=== PATIENT | female | born 1940 | race Caucasian/White ===

== ENCOUNTER 2016-10-07 12:29 | Inpatient (IN) | payer OTHER, BC ==
[2016-10-05 12:50] VITALS: BP 148/79
[2016-10-05 13:56] LABS: BLOOD UREA NITROGEN 27 mg/dL (7-18)
[2016-10-05 13:59] LABS: ASPARTATE AMINO TRANSFERASE 13 U/L (15-37)
[~2016-10-07] VITALS: Ht 165.1 cm; Wt 85.3 kg
[~2016-10-07 12:29] MED LIST: ASPI-621 PO; BONE-UP PO; CARV12.543 PO; FISH1CAP PO; FURO20TA3 PO; GLIP5TAB22 PO; IBUP200T64 PO; LISI-170 PO; METF10002 PO; POTA20TA89 PO; SIMV40TA3 PO
[2016-10-07] MEDS ORDERED: MIDAZOLAM 1 MG/ML, 2ML ONE (14:09)
[2016-10-07] MEDS: LACTATED RINGERS 1,000 ML IV SCH ×3 (14:09→19:38)
[2016-10-07] MEDS ORDERED: FENTANYL PF 250 MCG/5ML ONE (14:09)
[2016-10-07] MEDS ORDERED: BUPIVACAINE/PF 0.5% ONE (14:40)
[2016-10-07] MEDS ORDERED: PROPOFOL 10 MG/ML, 20ML ONE (15:03)
[2016-10-07] MEDS ORDERED: ONDANSETRON 2MG/ML, 2ML ONE (15:03)
[2016-10-07] MEDS ORDERED: NEOSTIGMINE 1 MG/ML, 10ML ONE (15:03)
[2016-10-07] MEDS ORDERED: CEFAZOLIN 1,000 MG ONE (15:03)
[2016-10-07] MEDS ORDERED: SUCCINYLCHOLINE 20 MG/ML, 10ML ONE (15:03)
[2016-10-07] MEDS ORDERED: ROCURONIUM 10 MG/ML ONE (15:03)
[2016-10-07] MEDS ORDERED: GLYCOPYRROLATE 0.2MG/1ML ONE (15:03)
[2016-10-07] MEDS ORDERED: ALBUTEROL SULFATE 2.5 MG/3 ML NPPB PRN (17:00)
[2016-10-07] MEDS ORDERED: OXYcodone 5 MG/5 ML ORAL.SOL UDC PO PRN (17:00)
[2016-10-07] MEDS ORDERED: EPHEDRINE 50 MG/ML, 1ML IVPush PRN (17:00)
[2016-10-07] MEDS ORDERED: hydrALAzine 20 MG/ML, 1ML IV PRN (17:00)
[2016-10-07] MEDS ORDERED: ONDANSETRON 2MG/ML, 2ML IVPush PRN (17:00)
[2016-10-07] MEDS ORDERED: ACETAMINOPHEN 325 MG TABLET PO PRN ×2 (17:00→21:00)
[2016-10-07] MEDS ORDERED: PROMETHAZINE 25 MG/ML, 1ML IV PRN (17:00)
[2016-10-07] MEDS ORDERED: LABETALOL 5MG/ML, 20ML IV PRN (17:00)
[2016-10-07] MEDS ORDERED: ALBUTEROL/IPRATROPIUM 2.5MG/0.5MG, 3 ML NPPB PRN (17:00)
[2016-10-07] MEDS ORDERED: METOPROLOL 1 MG/ML, 5ML IV PRN (17:00)
[2016-10-07] MEDS ORDERED: FENTANYL PF 100 MCG/2ML IV PRN (17:00)
[2016-10-07] MEDS ORDERED: HYDROmorphone 1 MG/ML, 1ML IV PRN (17:00)
[2016-10-07] MEDS ORDERED: OXYcodone 5 MG/5 ML ORAL.SOL UDC ONE (17:03)
[2016-10-07] MEDS ORDERED: ACETAMINOPHEN 650 MG/20.3 ML UDC ONE (17:03)
[2016-10-07] MEDS ORDERED: D5%-LACTATED RINGERS 1,000 ML IV SCH (18:30)
[2016-10-07 20:00] VITALS: BP 119/68
[2016-10-07] MEDS ORDERED: ONDANSETRON 2MG/ML, 2ML IV PRN (21:00)
[2016-10-07] MEDS ORDERED: IBUPROFEN 200 MG TABLET PO PRN (21:30)
[2016-10-07] MEDS ORDERED: MORPHINE SULFATE 4 MG/ML, 1ML IV PRN (21:30)
[2016-10-07] MEDS: FUROSEMIDE 20 MG TABLET PO SCH (23:20)
[2016-10-07] MEDS: SIMVASTATIN 40 MG TABLET PO SCH (23:20)
[2016-10-07 23:47] VITALS: BP 119/68
[2016-10-08 02:00] VITALS: BP 132/70
[2016-10-08] MEDS: D5%-LACTATED RINGERS 1,000 ML IV SCH ×3 (03:57→17:37)
[2016-10-08] MEDS: CARVEDILOL 12.5 MG TABLET PO SCH ×2 (06:17→17:37)
[2016-10-08] MEDS: ASPIRIN 81 MG TABLET EC PO SCH (06:18)
[2016-10-08 07:24] VITALS: BP 168/77
[2016-10-08] MEDS: OXYcodone/APAP 5/325MG TABLET PO PRN ×3 (08:02→20:51)
[2016-10-08] MEDS: LISINOPRIL 20 MG TABLET PO SCH (08:51)
[2016-10-08] MEDS: POTASSIUM CHLORIDE 20 MEQ TAB.ER.PRT PO SCH (08:51)
[2016-10-08] MEDS: metFORMIN 500 MG TABLET PO SCH ×2 (08:51→17:37)
[2016-10-08] MEDS: FUROSEMIDE 20 MG TABLET PO SCH ×2 (08:51→20:51)
[2016-10-08 14:44] VITALS: BP 116/52
[2016-10-08 19:12] VITALS: BP 101/52
[2016-10-08] MEDS: SIMVASTATIN 40 MG TABLET PO SCH (20:51)
[2016-10-09 02:09] VITALS: BP 88/48
[2016-10-09] MEDS: ASPIRIN 81 MG TABLET EC PO SCH (05:08)
[2016-10-09] MEDS: OXYcodone/APAP 5/325MG TABLET PO PRN ×3 (05:08→21:36)
[2016-10-09] MEDS: CARVEDILOL 12.5 MG TABLET PO SCH ×2 (05:08→17:18)
[2016-10-09 05:09] VITALS: BP 96/52
[2016-10-09] MEDS: D5%-LACTATED RINGERS 1,000 ML IV SCH ×2 (05:09→21:36)
[2016-10-09] MEDS: metFORMIN 500 MG TABLET PO SCH ×2 (08:03→17:18)
[2016-10-09] MEDS: POTASSIUM CHLORIDE 20 MEQ TAB.ER.PRT PO SCH (08:04)
[2016-10-09] MEDS: LISINOPRIL 20 MG TABLET PO SCH (08:08)
[2016-10-09] MEDS: FUROSEMIDE 20 MG TABLET PO SCH ×2 (08:09→21:37)
[2016-10-09 08:50] VITALS: BP 87/52
[2016-10-09 14:59] VITALS: BP 114/55
[2016-10-09 19:17] VITALS: BP 91/44
[2016-10-09] MEDS: SIMVASTATIN 40 MG TABLET PO SCH (21:36)
[2016-10-10 02:00] VITALS: BP 90/44
[2016-10-10] MEDS: OXYcodone/APAP 5/325MG TABLET PO PRN ×3 (04:24→20:18)
[2016-10-10 04:26] VITALS: BP 127/65
[2016-10-10] MEDS: ASPIRIN 81 MG TABLET EC PO SCH (06:14)
[2016-10-10] MEDS: D5%-LACTATED RINGERS 1,000 ML IV SCH (06:15)
[2016-10-10] MEDS: CARVEDILOL 12.5 MG TABLET PO SCH ×2 (06:15→18:37)
[2016-10-10 07:45] VITALS: BP 96/66
[2016-10-10] MEDS: metFORMIN 500 MG TABLET PO SCH ×3 (08:55→16:28)
[2016-10-10] MEDS: LISINOPRIL 20 MG TABLET PO SCH (08:56)
[2016-10-10] MEDS: FUROSEMIDE 20 MG TABLET PO SCH ×2 (08:56→20:18)
[2016-10-10] MEDS: POTASSIUM CHLORIDE 20 MEQ TAB.ER.PRT PO SCH (08:56)
[2016-10-10 10:37] LABS: BLOOD UREA NITROGEN 19 mg/dL (7-18)
[2016-10-10] MEDS: HEPARIN 5,000 UNITS/ML, 1ML SQ SCH ×2 (11:21→20:18)
[2016-10-10 14:04] VITALS: BP 98/63
[2016-10-10] MEDS: OxyconTIN ER 10 MG TAB.ER PO SCH (16:28)
[2016-10-10] MEDS: SIMVASTATIN 40 MG TABLET PO SCH (20:18)
[2016-10-10 21:33] VITALS: BP 122/68
[2016-10-11] MEDS: OXYcodone/APAP 5/325MG TABLET PO PRN ×2 (00:47→20:48)
[2016-10-11 01:57] VITALS: BP 109/62
[2016-10-11] MEDS: HEPARIN 5,000 UNITS/ML, 1ML SQ SCH ×3 (04:24→20:45)
[2016-10-11] MEDS: OxyconTIN ER 10 MG TAB.ER PO SCH ×2 (04:25→15:58)
[2016-10-11 05:45] VITALS: BP 96/63
[2016-10-11] MEDS: CARVEDILOL 12.5 MG TABLET PO SCH ×2 (05:48→17:43)
[2016-10-11] MEDS: ASPIRIN 81 MG TABLET EC PO SCH (05:48)
[2016-10-11 07:08] VITALS: BP 109/63
[2016-10-11] MEDS ORDERED: POLYETHYLENE GLYCOL 17 GM PACKET NG PRN (08:30)
[2016-10-11] MEDS: SENNA/DOCUSATE TABLET PO SCH (09:00)
[2016-10-11] MEDS: LISINOPRIL 20 MG TABLET PO SCH (09:50)
[2016-10-11] MEDS: FUROSEMIDE 20 MG TABLET PO SCH ×2 (09:51→20:45)
[2016-10-11] MEDS: POTASSIUM CHLORIDE 20 MEQ TAB.ER.PRT PO SCH (09:51)
[2016-10-11] MEDS: metFORMIN 500 MG TABLET PO SCH ×2 (09:52→17:43)
[2016-10-11 13:53] VITALS: BP 110/65
[2016-10-11 18:29] VITALS: BP 145/69
[2016-10-11] MEDS: SIMVASTATIN 40 MG TABLET PO SCH (20:45)
[2016-10-11 20:53] VITALS: BP 119/54
[2016-10-12] MEDS: OxyconTIN ER 10 MG TAB.ER PO SCH ×2 (03:18→17:04)
[2016-10-12] MEDS: HEPARIN 5,000 UNITS/ML, 1ML SQ SCH ×3 (03:18→20:22)
[2016-10-12 03:20] VITALS: BP 109/55
[2016-10-12] MEDS: ASPIRIN 81 MG TABLET EC PO SCH (06:14)
[2016-10-12] MEDS: CARVEDILOL 12.5 MG TABLET PO SCH ×2 (06:14→17:04)
[2016-10-12 07:10] VITALS: BP 125/73
[2016-10-12] MEDS: metFORMIN 500 MG TABLET PO SCH ×2 (08:49→17:03)
[2016-10-12] MEDS: POTASSIUM CHLORIDE 20 MEQ TAB.ER.PRT PO SCH (08:49)
[2016-10-12] MEDS: SENNA/DOCUSATE TABLET PO SCH (08:50)
[2016-10-12] MEDS: FUROSEMIDE 20 MG TABLET PO SCH ×2 (08:50→20:23)
[2016-10-12] MEDS: LISINOPRIL 20 MG TABLET PO SCH (08:52)
[2016-10-12] MEDS: FLUTICASONE/VILANTEROL 200-25MCG/INH INH SCH (12:50)
[2016-10-12 13:20] VITALS: BP 159/73
[2016-10-12] MEDS: SIMVASTATIN 40 MG TABLET PO SCH (20:23)
[2016-10-12 21:02] VITALS: BP 131/79
[2016-10-13 00:55] VITALS: BP 147/76
[2016-10-13] MEDS: ASPIRIN 81 MG TABLET EC PO SCH (04:51)
[2016-10-13] MEDS: HEPARIN 5,000 UNITS/ML, 1ML SQ SCH (04:51)
[2016-10-13] MEDS: CARVEDILOL 12.5 MG TABLET PO SCH (04:51)
[2016-10-13] MEDS: OxyconTIN ER 10 MG TAB.ER PO SCH (04:51)
[2016-10-13 07:40] VITALS: BP 157/70
[2016-10-13] MEDS: POTASSIUM CHLORIDE 20 MEQ TAB.ER.PRT PO SCH (07:47)
[2016-10-13] MEDS: SENNA/DOCUSATE TABLET PO SCH (07:47)
[2016-10-13] MEDS: metFORMIN 500 MG TABLET PO SCH (07:48)
[2016-10-13] MEDS: FLUTICASONE/VILANTEROL 200-25MCG/INH INH SCH (07:48)
[2016-10-13] MEDS: LISINOPRIL 20 MG TABLET PO SCH (07:48)
[2016-10-13] MEDS: FUROSEMIDE 20 MG TABLET PO SCH (07:48)
[2016-10-13] MEDS ORDERED: ENOX40SY4 SQ (10:16)
[2016-10-13] MEDS ORDERED: FLUT1BLS INH (10:16)
[2016-10-13] MEDS ORDERED: SENN1TAB7 PO (10:16)
[2016-10-13] MEDS ORDERED: OXYC1TAB7 PO (10:16)
[2016-10-13] MEDS ORDERED: ACET325T14 PO (10:16)
[2016-10-13] MEDS ORDERED: MULT-750 PO (10:26)
== END 2016-10-13 12:25 | DRG 501 ==
LOC: OUT 12:29 → 4WST 18:20 → INTOOBSV 22:11 → OUT 22:11 → 4WST 22:11 → UNDOADMOB 22:11 → 4WST 10-08 13:35 → OBSVTOIN 10-09 11:19
PROVIDERS: ADMIT Orthopaedic Surgery; ATTEND Orthopaedic Surgery
PROC: 0L8T0ZZ Division of Left Ankle Tendon, Open Approach (ICD-10-PCS; 2016-10-07)
PROC: 0LXT0ZZ Transfer Left Ankle Tendon, Open Approach (ICD-10-PCS; principal; 2016-10-07 16:00)
DX: S86.012A Strain of left Achilles tendon, initial encounter (principal); I13.0 Hypertensive heart and chronic kidney disease with heart failure and stage 1 through stage 4 chronic kidney disease, or unspecified chronic kidney disease; J98.11 Atelectasis; N18.3 Chronic kidney disease, stage 3 (moderate); E11.22 Type 2 diabetes mellitus with diabetic chronic kidney disease; E78.5 Hyperlipidemia, unspecified; K21.9 Gastro-esophageal reflux disease without esophagitis; J44.9 Chronic obstructive pulmonary disease, unspecified; I25.10 Atherosclerotic heart disease of native coronary artery without angina pectoris; I50.9 Heart failure, unspecified; N18.2 Chronic kidney disease, stage 2 (mild); Y93.89 Activity, other specified; X58.XXXA Exposure to other specified factors, initial encounter; Y92.89 Other specified places as the place of occurrence of the external cause; I25.2 Old myocardial infarction; Z88.2 Allergy status to sulfonamides; Z91.013 Allergy to seafood; Z87.891 Personal history of nicotine dependence; Z79.899 Other long term (current) drug therapy
CPT/HCPCS: 36415; 71010; 76000; 80048; 80053; 82306; 82607; 82962; 83735; 84439; 84443; 85025; 93005; C1713; G0378; J0690; J1644; J2250; J2405; J2704; J2710; J3010; J3490; J0330; J7120; J7121

== ENCOUNTER 2016-11-10 08:54 | Inpatient (IN) | payer OTHER, BC ==
[~2016-11-10] VITALS: Ht 165.1 cm; Wt 80.3 kg
[~2016-11-10 08:54] MED LIST changes: +ACET325T14 PO; +ENOX40SY4 SQ; +FLUT1BLS INH; +MULT-750 PO; +OXYC1TAB7 PO; +SENN1TAB7 PO
[2016-11-10] MEDS ORDERED: SODIUM CHLORIDE FLUSH 10ML SYR IVF ONE (09:30)
[2016-11-10] MEDS ORDERED: MAALOX/HYOSCYAMINE/LIDOCAINE 45 ML BTL PO ONE (09:30)
[2016-11-10] MEDS ORDERED: SODIUM CHLORIDE 0.9% 1,000ML IVBOLUS ONE (09:30)
[2016-11-10 09:54] LABS: HEMATOCRIT 32.3 % (34.6-47.8); HEMOGLOBIN 10.7 g/dL (11.7-16.4); WHITE BLOOD COUNT 9.8 x10^3/uL (3.4-10)
[2016-11-10 10:06] LABS: ASPARTATE AMINO TRANSFERASE 18 U/L (15-37); BLOOD UREA NITROGEN 53 mg/dL (7-18); IS PT STATUS REG ER OR PRE ER? YES
[2016-11-10] MEDS ORDERED: MAALOX/HYOSCYAMINE/LIDOCAINE 45 ML BTL ONE (10:07)
[2016-11-10] MEDS ORDERED: FAMOTIDINE 20 MG/2 ML IVPush ONE (11:00)
[2016-11-10] MEDS ORDERED: OXYcodone IR 5MG TABLET PO PRN (13:30)
[2016-11-10] MEDS ORDERED: morphine SULFATE 10 MG/ML, 1ML IVPush PRN (13:30)
[2016-11-10] MEDS ORDERED: hydrALAzine 20 MG/ML, 1ML IVPush PRN (13:30)
[2016-11-10] MEDS ORDERED: MAALOX/HYOSCYAMINE/LIDOCAINE 45 ML BTL PO PRN (13:30)
[2016-11-10 13:55] VITALS: BP 125/61
[2016-11-10] MEDS: SODIUM CHLORIDE 0.9% 1,000 ML IV SCH (14:43)
[2016-11-10] MEDS: INSULIN ASPART 100 UNITS/ML, PEN SQ-INSULIN SCH ×2 (16:00→19:48)
[2016-11-10] MEDS: SUCRALFATE 1 GM/10 ML UDC PO SCH ×2 (16:53→19:49)
[2016-11-10 21:16] VITALS: BP 120/80
[2016-11-10] MEDS: PANTOPRAZOLE 40 MG IV IVPush SCH (21:19)
[2016-11-11] MEDS: SODIUM CHLORIDE 0.9% 1,000 ML IV SCH ×3 (01:05→21:03)
[2016-11-11 04:15] VITALS: BP 120/70
[2016-11-11 06:13] LABS: HEMATOCRIT 28.9 % (34.6-47.8); HEMOGLOBIN 9.6 g/dL (11.7-16.4); WHITE BLOOD COUNT 7.8 x10^3/uL (3.4-10)
[2016-11-11 06:37] LABS: ASPARTATE AMINO TRANSFERASE 13 U/L (15-37); BLOOD UREA NITROGEN 37 mg/dL (7-18)
[2016-11-11] MEDS: INSULIN ASPART 100 UNITS/ML, PEN SQ-INSULIN SCH ×4 (07:00→21:00)
[2016-11-11] MEDS: ENOXAPARIN 30 MG/0.3 ML SQ SCH (08:03)
[2016-11-11] MEDS: SUCRALFATE 1 GM/10 ML UDC PO SCH ×4 (08:03→21:03)
[2016-11-11] MEDS: metroNIDAZOLE 500 MG TABLET PO SCH ×3 (08:03→23:15)
[2016-11-11] MEDS: PANTOPRAZOLE 40 MG IV IVPush SCH ×2 (08:03→21:03)
[2016-11-11 08:30] VITALS: BP 115/68
[2016-11-11 15:03] VITALS: BP 122/69
[2016-11-11 20:44] VITALS: BP 145/74
[2016-11-12 02:50] VITALS: BP 120/68
[2016-11-12 04:50] LABS: ASPARTATE AMINO TRANSFERASE 11 U/L (15-37); BLOOD UREA NITROGEN 18 mg/dL (7-18)
[2016-11-12] MEDS: INSULIN ASPART 100 UNITS/ML, PEN SQ-INSULIN SCH ×4 (07:00→21:00)
[2016-11-12] MEDS: metroNIDAZOLE 500 MG TABLET PO SCH ×3 (08:54→23:30)
[2016-11-12] MEDS: SODIUM CHLORIDE 0.9% 1,000 ML IV SCH ×2 (08:54→17:13)
[2016-11-12] MEDS: SUCRALFATE 1 GM/10 ML UDC PO SCH ×4 (08:54→21:36)
[2016-11-12] MEDS: ENOXAPARIN 30 MG/0.3 ML SQ SCH (12:12)
[2016-11-12] MEDS: PANTOPRAZOLE 40 MG IV IVPush SCH ×2 (12:12→21:36)
[2016-11-12 15:59] VITALS: BP 154/82
[2016-11-12 20:22] VITALS: BP 132/73
[2016-11-13 01:40] VITALS: BP 140/70
[2016-11-13] MEDS: SODIUM CHLORIDE 0.9% 1,000 ML IV SCH ×2 (02:39→12:59)
[2016-11-13 05:14] LABS: BLOOD UREA NITROGEN 8 mg/dL (7-18)
[2016-11-13] MEDS: INSULIN ASPART 100 UNITS/ML, PEN SQ-INSULIN SCH ×4 (07:00→20:01)
[2016-11-13] MEDS: PANTOPRAZOLE 40 MG IV IVPush SCH ×2 (08:37→20:00)
[2016-11-13] MEDS: metroNIDAZOLE 500 MG TABLET PO SCH ×3 (08:37→23:07)
[2016-11-13] MEDS: SUCRALFATE 1 GM/10 ML UDC PO SCH ×4 (08:37→20:00)
[2016-11-13] MEDS: ENOXAPARIN 40 MG/0.4 ML SQ SCH (08:38)
[2016-11-13 08:41] VITALS: BP 133/72
[2016-11-13 15:20] VITALS: BP 134/70
[2016-11-13] MEDS ORDERED: POTASSIUM PHOSPHATE 22 MEQ in SODIUM CHLORIDE 0.9% 500 ML IV ONE (16:00)
[2016-11-13] MEDS: ONDANSETRON 2MG/ML, 2ML IVPush PRN (18:32)
[2016-11-13 21:10] VITALS: BP 140/76
[2016-11-14] MEDS: INSULIN ASPART 100 UNITS/ML, PEN SQ-INSULIN SCH ×4 (07:00→20:37)
[2016-11-14] MEDS: metroNIDAZOLE 500 MG TABLET PO SCH ×3 (07:25→22:34)
[2016-11-14] MEDS: SUCRALFATE 1 GM/10 ML UDC PO SCH ×4 (07:25→20:29)
[2016-11-14] MEDS: SODIUM CHLORIDE 0.9% 1,000 ML IV SCH ×2 (07:25→17:33)
[2016-11-14] MEDS: ENOXAPARIN 40 MG/0.4 ML SQ SCH (07:33)
[2016-11-14 08:43] VITALS: BP 145/73
[2016-11-14 10:45] LABS: BLOOD UREA NITROGEN 5 mg/dL (7-18)
[2016-11-14] MEDS: PANTOPRAZOLE 40 MG IV IVPush SCH ×2 (11:25→20:29)
[2016-11-14] MEDS ORDERED: POTASSIUM PHOSPHATE 44 MEQ in SODIUM CHLORIDE 0.9% 500 ML IV ONE (12:30)
[2016-11-14] MEDS ORDERED: MAGNESIUM SULFATE PMX 2GM/50ML 50 ML IV ONE (12:30)
[2016-11-14 14:00] VITALS: BP 167/70
[2016-11-14] MEDS: POTASSIUM PHOSPHATE 44 MEQ in SODIUM CHLORIDE 0.9% 500 ML IV SCH ×2 (17:32→17:59)
[2016-11-14 19:36] VITALS: BP 166/67
[2016-11-14] MEDS ORDERED: FUROSEMIDE 20 MG/2 ML IV ONE (21:00)
[2016-11-14] MEDS ORDERED: ALBUTEROL/IPRATROPIUM 2.5MG/0.5MG, 3 ML ONE (21:32)
[2016-11-14] MEDS ORDERED: ALBUTEROL/IPRATROPIUM 2.5MG/0.5MG, 3 ML NPPB PRN (22:00)
[2016-11-14] MEDS: ONDANSETRON 2MG/ML, 2ML IVPush PRN (23:01)
[2016-11-15 04:25] VITALS: BP 133/76
[2016-11-15 05:06] LABS: BLOOD UREA NITROGEN 5 mg/dL (7-18)
[2016-11-15 05:11] LABS: ASPARTATE AMINO TRANSFERASE 10 U/L (15-37)
[2016-11-15] MEDS: metroNIDAZOLE 500 MG TABLET PO SCH ×3 (07:00→22:12)
[2016-11-15] MEDS: INSULIN ASPART 100 UNITS/ML, PEN SQ-INSULIN SCH ×3 (07:00→16:00)
[2016-11-15] MEDS: SUCRALFATE 1 GM/10 ML UDC PO SCH ×4 (07:00→22:11)
[2016-11-15 08:07] VITALS: BP 134/73
[2016-11-15] MEDS: ENOXAPARIN 40 MG/0.4 ML SQ SCH (09:00)
[2016-11-15] MEDS: PANTOPRAZOLE 40 MG IV IVPush SCH (09:00)
[2016-11-15] MEDS ORDERED: SODIUM CHLORIDE 0.9% 1,000 ML IV SCH (13:09)
[2016-11-15 15:53] VITALS: BP 146/74
[2016-11-15] MEDS: FUROSEMIDE 20 MG/2 ML IV SCH ×2 (16:51→22:11)
[2016-11-15 20:00] VITALS: BP 165/71
[2016-11-15 22:06] VITALS: BP 137/80
[2016-11-15] MEDS: LACTOBACILLUS CHEW TABLET PO SCH (22:11)
[2016-11-15] MEDS: SIMVASTATIN 40 MG TABLET PO SCH (22:11)
[2016-11-15] MEDS: CARVEDILOL 12.5 MG TABLET PO SCH (22:11)
[2016-11-16 02:00] VITALS: BP 123/70
[2016-11-16 06:18] LABS: HEMOGLOBIN 9.5 g/dL (11.7-16.4); WHITE BLOOD COUNT 7.9 x10^3/uL (3.4-10)
[2016-11-16 06:21] LABS: ASPARTATE AMINO TRANSFERASE 9 U/L (15-37); BLOOD UREA NITROGEN 6 mg/dL (7-18)
[2016-11-16] MEDS: metroNIDAZOLE 500 MG TABLET PO SCH ×3 (06:42→21:57)
[2016-11-16] MEDS: SUCRALFATE 1 GM/10 ML UDC PO SCH ×4 (06:42→21:57)
[2016-11-16 07:09] VITALS: BP 123/70
[2016-11-16] MEDS: ENOXAPARIN 40 MG/0.4 ML SQ SCH (09:00)
[2016-11-16] MEDS ORDERED: FUROSEMIDE 20 MG/2 ML IV ONE (09:00)
[2016-11-16] MEDS: LACTOBACILLUS CHEW TABLET PO SCH ×3 (09:04→21:57)
[2016-11-16] MEDS: LISINOPRIL 20 MG TABLET PO SCH (09:04)
[2016-11-16] MEDS: CARVEDILOL 12.5 MG TABLET PO SCH ×2 (09:05→21:57)
[2016-11-16 13:03] VITALS: BP 128/75
[2016-11-16 20:00] VITALS: BP 136/61
[2016-11-16] MEDS: SIMVASTATIN 40 MG TABLET PO SCH (21:57)
[2016-11-17 02:00] VITALS: BP 101/58
[2016-11-17 05:50] LABS: HEMATOCRIT 28.7 % (34.6-47.8); HEMOGLOBIN 9.3 g/dL (11.7-16.4); WHITE BLOOD COUNT 8.1 x10^3/uL (3.4-10)
[2016-11-17 06:01] LABS: BLOOD UREA NITROGEN 11 mg/dL (7-18)
[2016-11-17 07:20] VITALS: BP 106/63
[2016-11-17] MEDS: SUCRALFATE 1 GM/10 ML UDC PO SCH ×3 (08:21→16:00)
[2016-11-17] MEDS: LACTOBACILLUS CHEW TABLET PO SCH ×2 (08:21→16:48)
[2016-11-17] MEDS: CARVEDILOL 12.5 MG TABLET PO SCH (08:21)
[2016-11-17] MEDS: metroNIDAZOLE 500 MG TABLET PO SCH ×2 (08:21→16:48)
[2016-11-17] MEDS: LISINOPRIL 20 MG TABLET PO SCH (08:21)
[2016-11-17] MEDS: ENOXAPARIN 40 MG/0.4 ML SQ SCH (08:22)
[2016-11-17] MEDS ORDERED: FUROSEMIDE 20 MG TABLET PO SCH (09:00)
[2016-11-17 13:59] VITALS: BP 103/68
[2016-11-17] MEDS ORDERED: METR500T PO (15:22)
[2016-11-17] MEDS ORDERED: ACID1TAB7 PO (15:22)
== END 2016-11-17 18:09 | disposition home or self-care (01) | DRG 871 ==
LOC: ED 10:25 → EDIP 10:26 → ED 10:46 → 3NE 11:50 → 4WST 11-15 17:56
PROVIDERS: ADMIT Internal Medicine; ATTEND Internal Medicine
DX: A41.9 Sepsis, unspecified organism (principal); E43 Unspecified severe protein-calorie malnutrition; I50.33 Acute on chronic diastolic (congestive) heart failure; J96.01 Acute respiratory failure with hypoxia; N17.9 Acute kidney failure, unspecified; I13.0 Hypertensive heart and chronic kidney disease with heart failure and stage 1 through stage 4 chronic kidney disease, or unspecified chronic kidney disease; A04.7 Enterocolitis due to Clostridium difficile; E11.22 Type 2 diabetes mellitus with diabetic chronic kidney disease; E78.5 Hyperlipidemia, unspecified; E83.39 Other disorders of phosphorus metabolism; E86.0 Dehydration; I25.10 Atherosclerotic heart disease of native coronary artery without angina pectoris; J44.9 Chronic obstructive pulmonary disease, unspecified; K80.20 Calculus of gallbladder without cholecystitis without obstruction; K76.0 Fatty (change of) liver, not elsewhere classified; N18.3 Chronic kidney disease, stage 3 (moderate); I25.2 Old myocardial infarction; Z79.899 Other long term (current) drug therapy; Z79.82 Long term (current) use of aspirin; Z68.29 Body mass index [BMI] 29.0-29.9, adult
CPT/HCPCS: 36415; 71010; 74176; 76700; 78227; 80048; 80053; 81003; 82962; 83036; 83605; 83690; 83735; 83880; 84100; 84443; 84484; 85025; 87040; 87324; 93005; 93306; 94640; 96360; 96361; J1650; J2405; J7620; A9537; C9113; C9898; J1940; J3475; J7030; J7040; S0028

== ENCOUNTER 2017-04-03 09:25 | Emergency (ER) | payer OTHER, BC ==
[~2017-04-03] VITALS: Ht 166.4 cm; Wt 79.8 kg
[~2017-04-03 09:25] MED LIST changes: +ACID1TAB7 PO; +METR500T PO
[2017-04-03 10:17] LABS: BASOPHILS # (AUTO) 0.06 x10^3/uL (0-0.1); BASOPHILS % (AUTO) 0 % (0-1); EOSINOPHILS # (AUTO) 0.15 x10^3/uL (0-0.4); EOSINOPHILS % (AUTO) 1 % (1-7); LYMPHOCYTES # (AUTO) 4.25 x10^3/uL (1-3.4); LYMPHOCYTES % (AUTO) 32 % (22-44); MD NO; MEAN CORPUSCULAR HEMOGLOBIN 27.7 pg (27.0-34.8); MEAN CORPUSCULAR HGB CONC 33.4 g/dL (32.4-35.8); MEAN CORPUSCULAR VOLUME 82.9 fL (80-100); MEAN PLATELET VOLUME 7.4 fL (7.4-10.4); MONOCYTES # (AUTO) 1.22 x10^3/uL (0.2-0.8); MONOCYTES % (AUTO) 9 % (2-9); NEUTROPHILS # (AUTO) 7.46 x10^3/uL (1.8-6.8); NEUTROPHILS % (AUTO) 57 % (42-75); PLATELET COUNT 168 x10^3/uL (130-400); RED BLOOD COUNT 3.94 x10^6/uL (3.82-5.3); RED CELL DISTRIBUTION WIDTH 15.1 % (9.6-15.2)
[2017-04-03] MEDS ORDERED: IBUPROFEN 200 MG TABLET ONE (10:22)
[2017-04-03 10:29] LABS: ALBUMIN 3.2 g/dL (3.4-5.0); ANION GAP 7 mmol/L (5-15); CALCIUM 8.8 mg/dL (8.5-10.1); CHLORIDE 105 mmol/L (98-107)
[2017-04-03] MEDS ORDERED: SODIUM CHLORIDE 0.9% 1,000ML IVBOLUS ONE (10:30)
[2017-04-03] MEDS ORDERED: IBUPROFEN 200 MG TABLET PO ONE (10:30)
[2017-04-03 10:32] LABS: RAPID INFLUENZA A Negative (Negative); RAPID INFLUENZA B Negative (Negative)
[2017-04-03 11:21] VITALS: BP 115/58
== END 2017-04-03 11:40 | disposition home or self-care (01) ==
LOC: ED 11:32
DX: J20.9 Acute bronchitis, unspecified (principal); B34.9 Viral infection, unspecified; J44.9 Chronic obstructive pulmonary disease, unspecified; I11.0 Hypertensive heart disease with heart failure; I50.9 Heart failure, unspecified; E11.9 Type 2 diabetes mellitus without complications; E78.5 Hyperlipidemia, unspecified; I25.2 Old myocardial infarction
CPT/HCPCS: 36415; 71010; 80048; 82040; 85025; 87400; 93005; 96360; 99285; J7030

== ENCOUNTER → 2017-05-25 | Outpatient (CLI) | payer OTHER, BC | LOC: CFH 08:59 | PROVIDERS: ATTEND Physician Assistant Medical | DX: Z12.31 Encounter for screening mammogram for malignant neoplasm of breast (principal) | CPT/HCPCS: 77067 ==

== ENCOUNTER 2018-09-13 09:50 | Emergency (ER) | payer MEDICARE, BC ==
[~2018-09-13] VITALS: Ht 160 cm; Wt 82.0 kg
[~2018-09-13 09:50] MED LIST changes: -ASPI-621 PO; +ASPI81TA45 PO; +SENN-177 PO; -SENN1TAB7 PO
[2018-09-13 09:57] VITALS: BP 123/73
== END 2018-09-13 11:31 | disposition home or self-care (01) ==
LOC: ED 11:14
DX: S83.92XA Sprain of unspecified site of left knee, initial encounter (principal); E11.9 Type 2 diabetes mellitus without complications; E78.5 Hyperlipidemia, unspecified; I25.2 Old myocardial infarction; I11.0 Hypertensive heart disease with heart failure; I50.9 Heart failure, unspecified; J44.9 Chronic obstructive pulmonary disease, unspecified; X50.1XXA Overexertion from prolonged static or awkward postures, initial encounter; Y93.89 Activity, other specified; Y92.89 Other specified places as the place of occurrence of the external cause; Y99.8 Other external cause status
CPT/HCPCS: 29505; 99283

== ENCOUNTER 2019-02-24 13:15 | Emergency (ER) | payer MEDICARE, BC ==
[~2019-02-24] VITALS: Ht 160 cm; Wt 78.0 kg
[2019-02-24] MEDS ORDERED: SODIUM CHLORIDE FLUSH 10ML SYR IVF ONE (14:00)
[2019-02-24 14:10] LABS: MEAN CORPUSCULAR HEMOGLOBIN 28.7 pg (27.0-34.8); MEAN CORPUSCULAR HGB CONC 33.2 g/dL (32.4-35.8); MEAN CORPUSCULAR VOLUME 86.7 fL (80-100); MEAN PLATELET VOLUME 7.8 fL (7.4-10.4); PLATELET COUNT 162 x10^3/uL (130-400); RED BLOOD COUNT 4.33 x10^6/uL (3.82-5.3); RED CELL DISTRIBUTION WIDTH 15.1 % (9.6-15.2)
[2019-02-24 14:10] LABS: RAPID INFLUENZA A Negative (Negative); RAPID INFLUENZA B Negative (Negative)
[2019-02-24 14:21] LABS: ALANINE AMINOTRANSFERASE 27 U/L (12-78); ALBUMIN 3.5 g/dL (3.4-5.0); ANION GAP 4 mmol/L (5-15); CALCIUM 8.6 mg/dL (8.5-10.1); CHLORIDE 111 mmol/L (98-107); CREATININE 1.44 mg/dL (0.55-1.02)
[2019-02-24 14:26] LABS: ALKALINE PHOSPHATASE 90 U/L (45-117); BILIRUBIN,TOTAL 0.3 mg/dL (0.2-1.0); TROPONIN I < 0.015 ng/mL (0.000-0.045)
--- NOTE | 2019-02-24 14:53 | NUR ---
MD AT BEDSIDE TO DISCUSS POC WITH PT
[2019-02-24 15:05] VITALS: BP 119/70
[2019-02-24 15:19] LABS: MD YES
[2019-02-24 15:22] LABS: BAND#(MANUAL) 0.52 x10^3/uL; BANDS%(MANUAL) 4 % (0-7); EOS#(MANUAL) 0.65 x10^3/uL (0.0-0.4); EOS% (MANUAL) 5 % (1-7); LYMPH#(MANUAL) 6.84 x10^3/uL (1-3.4); LYMPHS% (MANUAL) 53 % (22-44); MONOS#(MANUAL) 0.13 x10^3/uL (0.3-2.7); MONOS% (MANUAL) 1 % (2-9); REACTIVE LYMPHS # (MANUAL) 1.42 x10^3/uL (0-0); REACTIVE LYMPHS % (MANUAL) 11 % (0-0); SEG#(MANUAL) 3.35 x10^3/uL (1.8-6.8); SEGS% (MANUAL) 26 % (42-75)
[2019-02-24 15:23] LABS: <PLATELET ESTIMATE> ADEQUATE; <PLT MORPHOLOGY> NORMAL PLT MORPH; <RBC MORPHOLOGY> NORMAL
== END 2019-02-24 15:22 | disposition home or self-care (01) ==
LOC: ED 14:00
DX: J44.1 Chronic obstructive pulmonary disease with (acute) exacerbation (principal); N28.9 Disorder of kidney and ureter, unspecified; E11.9 Type 2 diabetes mellitus without complications; I25.2 Old myocardial infarction; I11.0 Hypertensive heart disease with heart failure; I50.9 Heart failure, unspecified; E78.5 Hyperlipidemia, unspecified; M10.9 Gout, unspecified; F17.210 Nicotine dependence, cigarettes, uncomplicated
CPT/HCPCS: 36415; 71045; 80053; 83605; 83880; 84145; 84484; 85025; 87040; 87400; 93005; 99284; J7512